=== PATIENT | female | born 1985 ===

== ENCOUNTER 2023-10-11 06:00 | Day surgery (SDC) | payer OTHER ==
[~2023-10-11] VITALS: Ht 162.6 cm; Wt 61.7 kg
[~2023-10-11 06:00] MED LIST: NIFEDIPINE20 MG
[2023-10-11] MEDS ORDERED: OXYTOCIN 10 UNITS/ML VIAL ONE ×2 (08:37)
[2023-10-11] MEDS ORDERED: POVIDONE-IODINE 118 ML BOTT TOP ONE ×2 (09:02→12:45)
[2023-10-11] MEDS ORDERED: CARBOPROST TROMETHAMINE 250 MCG/ML AMPUL IM ONE ×2 (09:31→12:45)
[2023-10-11] MEDS ORDERED: OXYTOCIN 10 UNITS/ML VIAL IV ONE (12:45)
== END 2023-10-11 11:45 | disposition home or self-care (01) ==
LOC: CIR.AMB 06:00
PROVIDERS: ATTEND Specialist
DX: O02.1 Missed abortion (principal)